=== PATIENT | male | born 1980 | race Two or more races ===

== ENCOUNTER 2022-06-01 06:33 | Emergency (ER) | payer SELFPAY ==
[2022-06-01 07:29] LABS: BASOPHIL 1.4 % (0-2); HCT 43.5 % (42.0-52.0); HGB 15.4 g/dl (13.2-18.0); LYMPHOCYTE 34.2 % (15-48); MCH 32.4 pg (25.0-31.0); MCHC 35.4 g/dL (32.0-36.0); MCV 91.4 fL (78.0-100.0); MONOCYTE 6.1 % (0-12); MPV 12.8 fL (6.0-9.5); NEUTROPHIL 50.1 % (41-80); NRBC 0; PLT 163 K/uL (150-400); RBC 4.76 M/uL (4.70-6.00); RDW 12.6 % (11.5-14.0); WBC 5.9 K/uL (4.0-10.5)
[2022-06-01 07:38] LABS: BUN/CREAT RATIO (CALC) 25.4 RATIO; CREATININE 0.63 mg/dL (0.67-1.17); POTASSIUM 4.3 mmol/L (3.5-5.1)
[2022-06-01] MEDS ORDERED: PATADAY2.5 ML OU (07:53)
[2022-06-01] MEDS ORDERED: MEDROL 4MG DOSEP4 MG PO (07:53)
[2022-06-01] MEDS ORDERED: ZYRTEC10 M3 PO (07:53)
== END 2022-06-01 08:10 | disposition home or self-care (01) ==
LOC: FER 06:33
PROVIDERS: Internal Medicine
DX: H10.13 Acute atopic conjunctivitis, bilateral (principal); Z28.310 Unvaccinated for COVID-19
CPT/HCPCS: 36415; 80048; 85025; J1200; J2930